=== PATIENT | female | born 1965 | race Caucasian/White ===

== ENCOUNTER → 2025-08-04 | Outpatient (CLI) | payer MEDICAID, SELFPAY ==
--- NOTE | 2025-08-04 17:08 | US_ITS ---
PROCEDURE: EXT NON VASC LIMITED/SOFT TISS 08/04/2025 REASON FOR EXAM: POSSIBLE FOREIGN BODY Patient had a glucometer monitor that fell out but did not see needle. TECHNIQUE: Procedure Code: [id number] Modality: US Procedure: EXT NON VASC LIMITED/SOFT TISS COMPARISON: None. FINDINGS: The area of interest, the posterior aspect of the left upper arm, was scanned. There is an echogenic circumscribed mass within muscle measuring 3.2 x 2.3 x 0.9 cm. No foreign body was visualized at the region of the previous glucose monitor. US/Ext Non Vasc Limited/Soft Tiss IMPRESSION: 1. No evidence of radiopaque foreign body. 2. Intramuscular lipoma. Reading Location: [id number]
== END | disposition home or self-care (01) ==
LOC: US 17:07
PROVIDERS: Referring Provider Nurse Practitioner Family; Visit Provider Nurse Practitioner Family
DX: M79.602 Pain in left arm (principal)
CPT/HCPCS: 76882